=== PATIENT | male | born 1995 | race Caucasian/White ===

== ENCOUNTER 2024-05-23 08:54 | Emergency (ER) | payer OTHER, SELFPAY ==
--- NOTE | 2024-05-23 08:58 | ED.LOWEXIN ---
HPI - Extremity Injury (Lower) General Chief Complaint: Extremity Injury, Lower Stated Complaint: Left Foot Pain Time Seen by Provider: 05/23/24 08:57 Source: patient Mode of arrival: ambulatory Limitations: no limitations History of Present Illness HPI Narrative: Patient is a 29-year-old male who presents with left foot pain started Tuesday. Patient denies any swelling, bruising. Denies any injury, did not feel a pop. Patient states he was working a just started hurting. Patient has not taken any pain medication. Patient still able ambulate normally. Related Data Home Medications Medication Instructions Recorded Confirmed No Home Medications 05/23/24 05/23/24 Allergies Allergy/AdvReac Type Severity Reaction Status Date / Time No Known Allergies Allergy Verified 05/23/24 09:21 Review of Systems Review of Systems: All systems reviewed & are unremarkable except as noted in HPI and below Constitutional: Constitutional: Denies body ache(s), Denies chills, Denies fatigue, Denies fever(s), Denies headache(s), Denies malaise and Denies weakness Eyes: Eyes: Denies blurry vision, Denies irritation and Denies loss of vision ENT: Denies otalgia, Denies headache(s), Denies nasal discharge, Denies sinus pain and Denies sore throat Cardiovascular: Cardiovascular: Denies chest pain, Denies irregular heart rhythm and Denies dyspnea Respiratory: Respiratory: Denies dyspnea Gastrointestinal: Gastrointestinal: Denies abdominal pain, Denies melena, Denies hematochezia, Denies diarrhea, Denies nausea and Denies vomiting Musculoskeletal: Musculoskeletal: Denies back pain, Denies myalgias and Reports arthralgias Integumentary/Breasts: Skin/Breast: Denies pruritus and Denies rash Neurologic: Denies headache(s), Denies loss of vision and Denies weakness Psychiatric: Psychiatric: Reports no additional psychiatric complaints Endocrine: Endocrine: Denies fatigue PMFSH Comments At time of signature, agree with nursing past medical, surgical, social and family history. There is no relevant family history pertinent to the presenting complaint. Exam Const: General: cooperative, healthy appearing, comfortable, no acute distress and well nourished Nutritional Appearance: well nourished Orientation/consciousness: patient oriented x3 Limitations: no limitations HENMT: Head: normal to inspection, normocephalic and atraumatic Ears: hearing grossly normal bilaterally and external ears normal Face/Nose/Sinus: Normal external nose present, normal facial exam and face symmetric Face and sinus: normal facial exam and face symmetric Mouth: Yes lip normal Eyes: General: appearance normal, both eyes and all related structures Alignment and Position: alignment normal and position normal Periorbital: periorbital findings normal Eyelids: eyelids normal Pupils: Equal, round and reactive pupils present EOM: EOMs intact bilaterally Neck: Neck: normal visual inspection, full ROM and supple Chest: Chest palpation & inspection: normal inspection of the chest Resp: Effort & Inspection: normal respiratory effort and able to speak in complete sentences Auscultation: clear to auscultation bilaterally Cardio: Rate: regular rate Rhythm: regular rhythm Heart sounds: S1 normal heart sound present and S2 normal heart sound present GI: Inspection: normal to inspection Skin: General skin exam: normal color and no rashes or lesions noted Neuro: General: patient oriented x3 and moves all extremities Cranial nerves: Yes Equal, round and reactive pupils present Speech: normal speech Gait exam (Neuro): Normal gait present Extrem: General: normal to inspection, full ROM and no edema Left lower extremity: ankle Details: normal to inspection and normal ROM; no tenderness, no swelling and achilles tendon exam normal and foot Details: normal capillary refill, normal to inspection, tenderness Location: of the plantar foot Location: distally, toes with norm
[2024-05-23 09:02] VITALS: BP 127/71; PULSE 82; RESP 19; TEMP 36.6; O2SAT 100
== END 2024-05-23 09:45 | disposition home or self-care (01) ==
PROVIDERS: Emergency Provider Nurse Practitioner Family
DX: S93.602A Unspecified sprain of left foot, initial encounter (principal); X58.XXXA Exposure to other specified factors, initial encounter; Y99.0 Civilian activity done for income or pay
CPT/HCPCS: 73630; 99203; G0463

== ENCOUNTER 2025-06-16 15:57 | Emergency (ER) | payer OTHER, SELFPAY ==
[2025-06-16] VITALS (8 sets, daily range): BP systolic 146–155; BP diastolic 96–97; PULSE 60–82; RESP 13–20; TEMP 36.8; O2SAT 97–100
--- NOTE | ~2025-06-16 | CT_ITS ---
EXAMINATION: CT abdomen pelvis wo con, 06/16/2025 16:40 CDT HISTORY: L lower back/LLQ pain COMPARISON: No comparisons available. TECHNIQUE: CT scan of the abdomen and pelvis was performed without IV contrast. One or more of the following dose reduction techniques were used: automated exposure control, adjustment of the mA and/or kV according to patient size, use of iterative reconstruction technique. Unless otherwise stated, incidental findings do not require dedicated follow up imaging FINDINGS: CT abdomen: LUNG BASES: The lung bases are clear. The visualized portions of the heart and pericardium are unremarkable. LIVER: Mild hepatic steatosis. SPLEEN: Unremarkable, no splenomegaly. KIDNEYS: Right Kidney: Unremarkable. No calculi. No hydronephrosis. Left Kidney: Left kidney moderate hydronephrosis and hydroureter due to an obstructing left UVJ calculus 3 x 3 x 3 mm. ADRENAL GLANDS: Unremarkable. PANCREAS: Unremarkable. GALLBLADDER/BILIARY: Unremarkable. No biliary dilatation. STOMACH AND ESOPHAGUS: Visualized stomach and esophagus within normal limits. BOWEL/MESENTERY: Moderate fecal content, no colitis or diverticulitis. Mild diverticulosis. Appendix normal. Mesentery normal. No dilated small bowel loops. ADENOPATHY/RETROPERITONEUM: No lymphadenopathy. AORTA/VASCULATURE: Normal caliber aorta. FREE FLUID OR FREE AIR: None. CT pelvis: SOLID ORGANS/REPRODUCTIVE: Unremarkable. BLADDER: Within normal limits. OSSEOUS STRUCTURES: No acute osseous abnormality.No suspicious lesions. OVERLYING SOFT TISSUES: Unremarkable. IMPRESSION: Left-sided obstructive uropathy Reviewed, dictated and finalized at location P.
--- NOTE | ~2025-06-16 | US_ITS ---
EXAMINATION: US scrotum doppler, 06/16/2025 16:50 CDT HISTORY: L testicular pain Comparison: None Technique: Subramanian-scale and color Doppler images were obtained of the testes with spectral analysis to document arterial and venous flow. Findings: Right Testicle:Right testicle 4.2 x 2.1 x 2.8 cm, normal parenchyma, normal flow. Right Epidiymis:Unremarkable. Normal flow. Left Testicle: Left testicle 4.1 x 2.2 x 3.1 cm, normal parenchyma, normal flow. Left Epidiymis: Unremarkable. Normal flow. Hydrocele: None . Varicocele: None Scrotum: Unremarkable. No skin thickening. Impression: No acute abnormality. Reviewed, dictated and finalized at location P. Impression: No acute abnormality.
--- NOTE | 2025-06-16 16:27 | ED.BACK ---
HPI - Back Pain/Injury General Chief Complaint: Back Pain/Injury Stated Complaint: back pain Time Seen by Provider: 06/16/25 16:05 Source: patient Mode of arrival: EMS Limitations: no limitations History of Present Illness HPI Narrative: Patient is a 30 y/o male who presents to the ED via EMS with report of left lower back pain. Patient reports pain began suddenly approx 1 hour ago while walking with this children. Reports pain in L lower back, radiating into his L lower abdomen and into his L testicle. Pain has been constant since onset. Has not taken anything for pain. Reports nausea associated with pain. Denies vomiting, difficulty urinating, hematuria, fever, penile drainage. Denies hx of kidney stones. Related Data Allergies Allergy/AdvReac Type Severity Reaction Status Date / Time No Known Allergies Allergy Verified 06/16/25 16:05 Review of Systems Review of Systems: All systems reviewed & are unremarkable except as noted in HPI. All systems reviewed & are unremarkable except as noted in HPI and below Exam Narrative: GENERAL: Uncomfortable appearing, obese with BMI of 33.6, moderate acute distress due to pain. HEAD: Normocephalic, atraumatic. RESPIRATORY: Airway patent, respirations nonlabored. Clear to auscultation bilaterally, no rales, rhonchi, wheezing. CARDIOVASCULAR: Regular rate and rhythm without murmurs, rubs, or gallops. ABDOMINAL: Soft, TTP in L CVA region, LLQ, nondistended. Normoactive BS. GENITAL: Normal circumcised penis. No penile drainage. No genital lesions. No abnormal lie to testicles, TTP along L medial and posterior testicle. No swelling, erythema, skin changes. MUSCULOSKELETAL: Moves all extremities. No gross deformities. SKIN: Warm, dry, normal color. NEURO: A&O X3. Speech clear. No ataxic movements. PSYCHIATRIC: Appropriate mood and affect. Normal interaction. Course Vital Signs Vital signs: Vital Signs Temperature 98.3 F 06/16/25 16:02 Pulse Rate 82 06/16/25 16:02 Respiratory Rate 16 06/16/25 16:02 Pulse Oximetry 97 06/16/25 16:02 Oxygen Delivery Room Air 06/16/25 16:02 Temperature 98.3 F 06/16/25 16:02 Pulse Rate 69 06/16/25 18:01 Respiratory Rate 15 06/16/25 18:01 Blood Pressure 155/97 H 06/16/25 18:01 Pulse Oximetry 97 06/16/25 17:36 Oxygen Delivery Room Air 06/16/25 16:02 MDM - Back Pain/Injury MDM Narrative Medical decision making narrative: Patient presented to ED with left lower back, left lower abdominal, left testicular pain. Vital signs stable upon arrival. Patient moderately uncomfortable appearing due to pain. No previous history of kidney stones. Laboratory studies with leukocytosis of 15.6. Stable H&H. CMP unremarkable. UA with 21-50 RBC, 6-10 WBC. Sent for culture. Negative leuk esterase, negative nitrate. Ultrasound of the scrotum unremarkable. No evidence of torsion or epididymitis. CT scan of abdomen/pelvis was obtained: Left kidney moderate hydronephrosis and hydroureter due to an obstructing left UVJ calculus 3 x 3 x 3 mm. Consistent with clinical picture. On re-evaluation, patient is feeling significantly better with supportive therapy. Pain is very well controlled at this time. He would like to go home. Will start patient on Keflex given presence of WBC on urine, will also discharge with pain/nausea medication, Flomax. Will provide Urology information for follow-up. Discussed very strict return precautions should pain worsen, or he develops fever of any kind. Patient voiced understanding. Discharged in stable condition. Medical Records Attestation: I reviewed the patient's medical records. Lab Data Attestation: I reviewed the patient's lab results. 06/16/25 17:20 06/16/25 17:20 Labs: Lab Results 06/16/25 06/16/25 Range/Units 17:20 18:41 WBC 15.6 H (4.5-10.0) K/mm3 RBC 4.74 (4.6-6.20) M/mm3 Hgb 14.6 (14.0-18.0) g/dL Hct 41.0 L (42.0-52.0) % MCV 86.5 (80-100) fl MCH 30.8 (26-34) pg MCHC 35.6 (32-36) g/dl RDW 11.1 L (11.5-14.5) % Plt Count 299 (150-375) k/mm3 MPV 8.9 (7.4-10.4) fl Immature Gran % (Auto) 0.6 H (0-0.5) % Neut % (Auto) 78.0 H (45.5-73.1) % Lymph % (Auto) 12.9 L (18.3-44.2) % [place] % (Auto) 7.3 (2.6-8.5) % Eos % (Auto) 0.8 (0-4.4) % Baso % (Auto) 0.4 (0.2-1.2) % Lymph # (Auto) 2.01 (0.9-3.2) K/mm3 [place] # (Auto) 1.1 H (0.1-0.6) K/mm3 Eos # (Auto) 0.1 (0-0.3) K/mm3 Baso # (Auto) 0.1 (0.0-0.1) K/mm3 Abs Immat Gran (auto) 0.10 H (0.00-0.031) K/mm3 Absolute Neuts (auto) 12.2 H (1.3-6.7) K/mm3 Absolute Nucleated RBC 0.000 (0.0-0.012) K/mm3 Nucleated RBC % 0.0 (0.0-0.2) % Sodium 139 (137-145) mmol/L Potassium 3.9 (3.4-5.0) mmol/L Chloride 103 (98-107) mmol/L Carbon Dioxide 25 (22-30) mmol/L Anion Gap 11 (4-12) mmol/L BUN 11 (9-20) mg/dL Creatinine 0.92 (0.7-1.3) mg/dL Estim Creat Clear Calc 131 ml/min Estimated GFR > 60 (59 - ) Glucose 119 H (65-110) mg/dL Calcium 8.9 (8.4-10.2) mg/dL Total Bilirubin 0.4 (0.2-1.3) mg/dL AST 51 (17-59) U/L ALT 73 H (6-50) U/L Alkaline Phosphatase 85 (38-126) U/L Total Protein 8.0 (6.3-8.2) g/dL Albumin 4.9 (3.5-5.1) g/dL Urine Color Yellow (Yellow) Urine Appearance Cloudy H (Clear) Urine pH 5.5 (5.0-9.0) Ur Specific [place] 1.024 (1.001-1.035) Urine Protein Negative (Negative) mg/dL Urine Glucose (UA) Negative (Negative) mg/dL Urine Ketones Trace H (Negative) mg/dL Ur Blood (Man) 2+ H (Negative) Urine Nitrate Negative (Negative) Urine Bilirubin Negative (Negative) Urine Urobilinogen 0.2 (<2.0) mg/dL Leukocyte Esterase Rfl Negative (Negative) CHERYL/UL Urine RBC 21-50 H (0-2) /hpf Urine WBC 6-10 H (0-3) /hpf Ur Squamous Epith Cells None seen (Few) /hpf Calcium Oxalate Crystal Present (None) /hpf Urine Bacteria None seen /hpf Urine Casts 0-2 Imaging Data Attestation: I personally reviewed and interpreted this imaging study as follows: Radiologist's impression: ITS Impressions Abdomen/Pelvis CT 06/16/25 17:06 IMPRESSION: Left-sided obstructive uropathy Scrotum Ultrasound 06/16/25 17:09 Impression: No acute abnormality. Discharge Plan Discharge Clinical Impression: Calculus of distal left ureter Patient Disposition: Home Condition: Stable Instructions: Antibiotic Form, Kidney Stones (ED), Flank Pain (ED) Additional Instructions: Take antibiotics as prescribed to protect against infection. Take Flomax daily as prescribed. Continue Tylenol and Ibuprofen as needed for pain. You may take 600 mg of ibuprofen and 1000 mg of Tylenol every 6 hours. Oxycodone as needed for more severe pain. Zofran for nausea. Stay well hydrated. Strain urine to collect stone. Follow-up with urology for further evaluation if needed. Call office to make appointment if needed. Return to the ED if you experience worsening or severe pain, unable to keep down food/drink, fevers, uncontrollable nausea/vomiting, unable to urinate, blood in urine, or any other symptoms of concern. Patient Language: Albanian Prescriptions: New tamsulosin [Flomax] 0.4 mg capsule 0.4 mg PO DAILY Qty: 7 0RF cephalexin 500 mg capsule 500 mg PO Q12H 7 Days Qty: 14 0RF ondansetron 4 mg tablet,disintegrating 4 mg PO Q8H PRN (Reason: nausea and vomiting) Qty: 15 0RF oxycodone 5 mg tablet 5 mg PO Q6H PRN (Reason: pain) Qty: 15 0RF Follow-up/Referrals: Pentecostal,Majdee M., MD [Physician, Urology] Referral Note: UROLOGY PHYSICIAN,[employer] ADMINISTRATOR [Primary Care Provider, Internal Medicine] Time of Disposition: 20:05
--- OUTSIDE RECORDS SUMMARY | 2025-06-16 16:30 | XMS_ITS | Clinical Summary ---
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 Unavailable Primary Care Provider Unavailabl e Allergies No known active allergies Medications No known medications Active Problems No known active problems Immunizations Immunization Administration Dates Next Due Skin Test TB 11/13/2019 Social History Tobacco Use Types Packs/Day Years Used Date Smoking Tobacco: Never Cigarettes Smokeless Tobacco: Never Sex and Gender Information Value Date Recorded Sex Assigned at Not on file Legal Sex Male 1:46 PM CDT Gender Identity Not on file Sexual Orientation Not on file Last Filed Vital Signs Vital Sign Reading Time Taken Comments Blood Pressure 118/80 11/13/2019 11:02 AM CDT Pulse 82 11/13/2019 11:02 AM CDT Temperature 37 C (98.6 F) 11/13/2019 11:02 AM CDT Respiratory Rate - - Oxygen Saturation 98% 11/13/2019 11:02 AM CDT Inhaled Oxygen Concentration - - Weight 85.7 kg (189 lb) 11/13/2019 11:02 AM CDT Height 182.2 cm (5' 11.75) 11/13/2019 11:02 AM CDT Body Mass Index 25.81 11/13/2019 11:02 AM CDT Plan of Treatment Health Maintenance Due Date Last Done Comments DTAP/TDAP/TD VACCINES (1 - Tdap) 01/25/2015 HEPATITIS B VACCINES (1 of 3 - 19+ 3-dose series) 01/2015 HPV VACCINES (1 - 3-dose SCDM series) 01/25/2023 INFLUENZA VACCINE (#1) 2025
--- OUTSIDE RECORDS SUMMARY | 2025-06-16 16:30 | XMS_ITS | Clinical Summary ---
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 Gender Identity Not on file Sexual Orientation Not on file Last Filed Vital Signs Vital Sign Reading Time Taken Comments Blood Pressure 118/80 11/13/2019 11:02 AM CDT Pulse 82 11/13/2019 11:02 AM CDT Temperature 37 C (98.6 F) 11/13/2019 11:02 AM CDT Respiratory Rate 16 08/19/2010 3:57 PM 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
[2025-06-16] MEDS: ONDANSETRON INJ 4 MG/2 ML VIAL IV PUSH (17:08)
[2025-06-16] MEDS: HYDROmorphone HCL INJ (*CRX) 1 MG/ML SYR 0.5 MG IV PUSH ×2 (17:09→18:01)
[2025-06-16] MEDS: SODIUM CHLORIDE 0.9% IV 1,000 ML 999 ML IV CONT (17:25)
[2025-06-16 17:26] LABS: Hematocrit 41.0 % (42.0-52.0); Hemoglobin 14.6 g/dL (14.0-18.0); Immature Granulocyte Percent A 0.6 % (0-0.5); Lymphocytes Absolute Auto 2.01 K/mm3 (0.9-3.2); Mean Corpuscular HGB Conc 35.6 g/dl (32-36); Mean Corpuscular Hemoglobin 30.8 pg (26-34); Mean Corpuscular Volume 86.5 fl (80-100); Nucleated Red Blood Cells Absolute Auto 0.000 K/mm3 (0.0-0.012); Nucleated Red Blood Cells Perc 0.0 % (0.0-0.2); Platelet Count Result 299 k/mm3 (150-375); Red Blood Count 4.74 M/mm3 (4.6-6.20); White Blood Count 15.6 K/mm3 (4.5-10.0)
[2025-06-16 17:38] LABS: Alanine Aminotransferase 73 U/L (6-50); Albumin Level 4.9 g/dL (3.5-5.1); Alkaline Phosphatase 85 U/L (38-126); Anion Gap 11 mmol/L (4-12); Aspartate Amino Transferase 51 U/L (17-59); Bilirubin,Total 0.4 mg/dL (0.2-1.3); Blood Urea Nitrogen 11 mg/dL (9-20); Calcium 8.9 mg/dL (8.4-10.2); Carbon Dioxide 25 mmol/L (22-30); Chloride 103 mmol/L (98-107); Estimated CRCL calculation 131 ml/min; Estimated Glomerular Filt Rate > 60; Glucose 119 mg/dL (65-110); Potassium 3.9 mmol/L (3.4-5.0); Sodium 139 mmol/L (137-145); Total Protein 8.0 g/dL (6.3-8.2)
[2025-06-16] MEDS: KETOROLAC 30 MG/ML VIAL (*BKC) IV PUSH (18:01)
[2025-06-16 19:42] LABS: Add Urine Microscopic? YES; Appearance Urine Cloudy (Clear); Glucose Urine UA Negative (Negative); Leukocyte Esterase Ur Negative LEU/UL (Negative); Nitrate Urine Negative (Negative); Non Pathogenic Casts 0-2; Specific Grav Ur 1.024 (1.001-1.035)
[2025-06-16] MEDS: CEPHALEXIN 500 MG CAPSULE PO (20:16)
[2025-06-16] MEDS: oxyCODONE HCL (*CRX) 5 MG TAB IR PO (20:16)
[2025-06-16] MEDS: TAMSULOSIN HCL 0.4 MG CAPSULE PO (20:16)
== END 2025-06-16 20:22 | disposition home or self-care (01) ==
PROVIDERS: Emergency Provider Physician Assistant
DX: N13.2 Hydronephrosis with renal and ureteral calculous obstruction (principal); N50.812 Left testicular pain
CPT/HCPCS: 36415; 74176; 76870; 80053; 81001; 85025; 87086; 93976; 96361; 96374; 96375; 96376; 99284; A9270; J1171; J1885; J2405; J7030